=== PATIENT | male | born 1965 | race Two or more races ===

== ENCOUNTER → 2024-10-23 | Outpatient (CLI) | payer MEDICAID, SELFPAY ==
--- NOTE | 2024-10-23 16:30 | XR_ITS ---
Examination: Retroperitoneal ultrasound, complete Technique: Multiple high resolution grayscale images of the retroperitoneum obtained, including kidneys and bladder. Exam date and time:October 23, 2024 1630 hours INDICATIONS: Proteinuria on urinary evaluation one month ago. FINDINGS: Right kidney 11.5 x 5.8 x 1.7 cm cortex 2.1 cm Left kidney 11.7 x 5.5 x 4.9 cm cortex 1.9 cm Multiple right renal cysts, the largest lower pole 21 mm Midpole left renal cyst 11 mm Moderate bilateral renal parenchymal scar formation No hydronephrosis No bladder mass or bladder calculi Bladder prevoid volume 788 cc postvoid volume 89 cc Prostate volume 20.8 cc no prostate nodules IMPRESSION: Moderate bilateral renal parenchymal scar formation, no hydronephrosis
== END | disposition home or self-care (01) ==
PROVIDERS: PCP Nurse Practitioner Primary Care; Referring Provider Nurse Practitioner Primary Care; Visit Provider Nurse Practitioner Primary Care
DX: N28.89 Other specified disorders of kidney and ureter (principal)
CPT/HCPCS: 76770

== ENCOUNTER 2025-01-02 08:50 | Day surgery (SDC) | payer MEDICAID, SELFPAY ==
--- NOTE | 2024-12-27 06:53 | EKG_ITS ---
[facility] Test Date: 2024-12-27 Pat Name: SUNG SIMPSON Department: Room: - Gender: Male Inspector Automatic Typewriter: RT STUDENT : 1965 Requested By: Michaela Martinez Order Number: [id number] Reading MD: Michaela Martinez Measurements Intervals [place] Rate: 68 P: 44 DE: 178 QRS: -17 QRSD: 98 T: 30 QT: 402 QTc: 430 Interpretive Statements SINUS RHYTHM No previous ECG available for comparison /[id number]/[email or web address]/[id number].pdf
[2024-12-27 09:14] VITALS: BMI 25.4
[2024-12-27 10:02] LABS: Basophils # (Auto) 0.1 Thou/mm3 (0.0-0.2); Basophils % (Auto) 1 % (0-2.5); Eosinophils # (Auto) 0.1 Thou/mm3 (0.0-0.5); Eosinophils % (Auto) 1 % (0-10); Hematocrit 41.1 % (41.0-53.0); Hemoglobin 14.2 g/dL (13.5-16.0); Immature Granulocytes % (Auto) 0 % (0-0); Immature Granulocytes Auto 0.01 Thou/mm3 (0.00-0.00); Lymphocytes # (Auto) 2.1 Thou/mm3 (1.0-4.8); Lymphocytes % (Auto) 38 % (10-50); Mean Corpuscular HGB Conc 34.5 g/dl (31.0-37.0); Mean Corpuscular Hemoglobin 30.4 pg (25.0-35.0); Mean Corpuscular Volume 88 fL (80-100); Monocytes # (Auto) 0.5 Thou/mm3 (0.0-0.8); Monocytes % (Auto) 9 % (0-12); Neutrophils # (Auto) 2.8 Thou/mm3 (1.8-7.7); Neutrophils % (Auto) 51 % (37-80); Nucleated Red Blood Cell % 0 /100 WBC (0); Platelet Count 303 Thou/mm3 (140-440); RDW Standard Deviation 39.8 fL (35.1-43.9); Red Blood Count 4.67 Miln/mm3 (4.50-5.90); White Blood Count 5.5 Thou/mm3 (3.8-10.6)
[2024-12-27 10:11] LABS: Alanine Aminotransferase 19 U/L (10-49); Albumin, Serum 4.8 gm/dL (3.5-5.0); Albumin/Globulin Ratio 1.6 (1.2-2.2); Alkaline Phosphatase 93 U/L (46-116); Anion Gap 8 (7-16); Aspartate Amino Transferase 18 U/L (0-34); BUN/Creatinine Ratio 18 Ratio (12-20); Bilirubin,Total 0.8 mg/dL (0.3-1.2); Blood Urea Nitrogen 16 mg/dL (9-23); Calcium 9.9 mg/dL (8.3-10.6); Calcium (Corrected) 9.9 mg/dL (8.5-10.1); Carbon Dioxide 31.3 mMol/L (20.0-31.0); Chloride 99 mMol/L (98-107); Creatinine (Component) 0.9 mg/dL (0.6-1.3); Estimated Creatinine Clearance 90.6 mL/min (>60); Glucose 95 mg/dL (74-106); Osmolality,Calculated 276 (275-295); Potassium 4.1 mMol/L (3.4-5.1); Sodium 138 mMol/L (136-145); Total Protein 7.8 gm/dL (5.7-8.2); eGFR > 60 See Note
[2024-12-27 10:13] LABS: Prothrombin Time 10.5 Seconds (9.0-12.2)
[2025-01-02] VITALS (10 sets, daily range): BP systolic 124–157; BP diastolic 78–98; PULSE 65–72; RESP 12–17; TEMP 36.6–37; O2SAT 95–100; BMI 24.3
--- NOTE | 2025-01-02 09:45 | CHAP ---
Prayed with patient before procedure.
--- NOTE | 2025-01-02 11:30 | SUR.PHASEI ---
1130 Patient arrived to recovery resting comfortably in [facility], awake and alert, breathing unlabored, on oxygen 2L via nasal cannula, vital signs stable, denies nausea, dressing intact to abdomen; dermabond, no bleeding noted, lung sounds clear upon auscultation, bilateral radial pulses present when palpated, report received from Luiz CHILDRESS and Dr. Ryan
--- NOTE | 2025-01-02 12:00 | ESOP_ITS ---
Date of Procedure 01/02/25 Pre Op Diagnosis Symptomatic cholelithiasis Post Op Diagnosis Cholelithiasis with cholecystitis Significant abdominal adhesions Procedure Laparoscopy with lysis of adhesions Findings Significant right upper quadrant adhesions. Significant adhesions on the anterior surface of the liver. Omentum was adherent to the inferior aspect of the liver and gallbladder. The distal aspect of the stomach was densely adherent to the gallbladder, suspicious for cholecysto gastric fistula Procedure Description Patient was brought into the operating room in supine position. After administration of general endotracheal anesthesia abdomen was prepped and draped in standard surgical manner. A Veress needle was inserted through the umbilicus and pneumoperitoneum was obtained up to 15 mmHg. The Veress needle was then removed, a 5 mm infraumbilical incision was made and the 5mm trocar was inserted. Laparoscopic camera was placed. Under direct visualization a laparoscopic camera a 10 mm trocar was placed in subxiphoid and two 5 mm trocars placed in right upper quadrant. Patient was noted to have significant amount of adhesions on the anterior surface of the liver. Significant lysis of adhesions were performed with electrocautery. Omentum was also adherent into the anterior and inferior aspect of the liver and gallbladder, significant lysis of adhesions performed. The distal aspect of the stomach was very densely adherent into the gallbladder. After multiple attempts I was unable to clearly delineate a plane of dissection between the stomach and gallbladder. 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 At this point I elected to abort the operation. I felt that it would not be safe to proceed and felt would be at the patient's best interest to refer patient to hepatobiliary surgeon. Hemostasis was adequate and satisfactory. The subxiphoid trocar sites fascial defect was closed with 0 Vicryl using Endo Closure device. Instruments and trocars removed, pneumoperitoneum was evacuated and the incisions closed with 4-0 Monocryl in subcuticular fashion. Instrument needle and sponge counts were all reported to be correct X2. Patient tolerated the procedure well, was extubated, breathing spontaneously and without difficulty and was transferred to postanesthesia care in stable condition. Anesthesia GETA and local Pathology / specimen None Estimated Blood Loss 10 Condition Stable Disposition PACU Surgeon Michaela Martinez MD Surgical Staff Operation Date: 01/02/25 12:00 Case Staff Anesthesiologist: Shabbir Ryan RNphysician assistant primary care: Dolores Delgado
--- NOTE | 2025-01-02 12:27 | SUR.PHASEII ---
received report at this time. pt sitting up in bed, v/s stable.
--- NOTE | 2025-01-02 12:27 | SUR.PHASEII ---
1227 Report given to Isaac CHILDRESS
[2025-01-02] MEDS: fentaNYL CIT INJ 50 mCg/ML AMP 2ML IV (12:41)
--- NOTE | 2025-01-02 13:15 | SUR.PHASEII ---
pt awake and alert, breathing unlabored on room air. v/s stable. pt dressing to abd dermabond x4 cdi. pt able to ambulate to wheelchair with steady gait. d/c instructions given with and daughter in room using ophthalmic surgeon Alexandro sp100, all questions answered. pt d/c via wheelchair with all belongings.
== END 2025-01-02 13:15 | disposition home or self-care (01) ==
PROVIDERS: PCP Nurse Practitioner Primary Care; Referring Provider Surgery; Visit Provider Surgery
PROC: 0FT44ZZ Resection of Gallbladder, Percutaneous Endoscopic Approach (ICD-10-PCS; CPT 47562; principal; 2025-01-02 11:45)
DX: K80.00 Calculus of gallbladder with acute cholecystitis without obstruction (principal); K66.0 Peritoneal adhesions (postprocedural) (postinfection); Z01.810 Encounter for preprocedural cardiovascular examination
CPT/HCPCS: 44180; 36415; 80053; 85025; 85610; 93005; A4217; A4649; J0131; J0694; J1100; J2405; J2704; J3010; J3490